=== PATIENT | male | born 1980 | race African-American/Black ===

== ENCOUNTER 2019-03-31 15:24 | Emergency (ER) | payer OTHER ==
[2019-03-31] MEDS ORDERED: LIDOCAINE 1% INJ-PF (10 MG/ML) 30 ML SDV INJ ONE (15:34)
--- NOTE | 2019-03-31 15:36 | ER Document Report ---
HPI - HPI Time Seen by Provider: 03/31/19 15:32 Notes: Patient is an otherwise healthy 30-year-old male presenting to the emergency department chief complaint of right index finger laceration. He states he was at work when he cut his finger on a can. He reports his tetanus is up-to-date. He states this happened just prior to arrival. Past Medical History - General Information source: Patient - Social History Smoking Status: Never Smoker Frequency of alcohol use: None Drug Abuse: None Family History: Reviewed & Not Pertinent - Medical History Medical History: Negative Surgical Hx: Negative - Immunizations Immunizations up to date: Yes Hx Diphtheria, Pertussis, Tetanus Vaccination: Yes Vertical Provider Document - CONSTITUTIONAL Notes: PHYSICAL EXAMINATION: GENERAL: Well-appearing, well-nourished and in no acute distress. HEAD: Atraumatic, normocephalic. EYES: Pupils equal round extraocular movements intact, conjunctiva are normal. ENT: Nares patent NECK: Normal range of motion LUNGS: No respiratory distress Musculoskeletal: Normal range of motion NEUROLOGICAL: Normal speech, normal gait. PSYCH: Normal mood, normal affect. SKIN: 3 cm laceration noted to right index finger, superficial and approximates well, mild active bleeding noted. Cap refill less than 3 seconds, normal motor and sensation to finger. Course - Re-evaluation Re-evalutation: Laceration repaired under sterile technique, patient tolerated well, see procedure note. - Vital Signs Vital signs: Temp Pulse Resp BP Pulse Ox 98.2 F 62 18 170/109 H 96 03/31/19 15:31 03/31/19 15:31 03/31/19 15:31 03/31/19 15:31 03/31/19 15:31 Procedures - Laceration/Wound Repair Right index finger Wound length (cm): 3 Wound's Depth, Shape: Superficial Laceration pre-procedure: Sterile PPE donned Anesthetic type: 1% Lidocaine Wound Debrided: Minimal Wound Repaired With: Sutures Suture Size/Type: 5:0 Number of Sutures: 7 Discharge - Discharge Clinical Impression: Laceration Condition: Stable Disposition: HOME, SELF-CARE Instructions: Laceration Care ([facility]), Prophylactic Antibiotic ([facility]) Additional Instructions: Laceration Care Your laceration has been sutured to keep the skin edges aligned during healing. The time of suture removal depends on the nature and location of your cut. Please follow the care instructions the doctor has outlined for you and re turn for further care, according to the schedule you've been given. Keep the wound and dressing clean. Unless you were told otherwise, you may shower daily, blotting the wound dry with a clean, unused towel. At other times, If the dressing gets wet or blood soaked, remove it and blot the wound dry, then reapply a new dressing. Unless you were instructed otherwise, dressings should be changed at least daily. If any signs of infection occur (swelling, redness, increasing tenderness, red streaks, tender lumps in the armpit or groin above the laceration, or fever), see the doctor immediately. Please return to the emergency department or your primary care provider in 12-14 days for suture removal. Please return earlier if you develop any signs of infection such as increased redness, swelling, foul-smelling drainage or fever. Prescriptions: Cephalexin [Keflex] 500 mg PO BID #14 capsule Forms: Return to Work Referrals: [facility] [Primary Care Provider] - Follow up as needed
[2019-03-31 16:28] VITALS: BP 152/107
== END 2019-03-31 16:30 | disposition home or self-care (01) ==
LOC: ER 15:24
DX: S61.210A Laceration without foreign body of right index finger without damage to nail, initial encounter (principal); W26.8XXA Contact with other sharp object(s), not elsewhere classified, initial encounter; Y99.0 Civilian activity done for income or pay
CPT/HCPCS: 99282; 12002; J3490